=== PATIENT | male | born 1995 | race Caucasian/White ===

== ENCOUNTER 2017-02-28 13:50 | Inpatient (IN) | payer OTHER ==
[~2017-02-28] VITALS: Ht 175.3 cm; Wt 114.6 kg
[2017-02-28] MEDS: NICOTINE 21MG/24HR 1 EA TRANSDERMAL TD SCH (09:00)
[2017-02-28 15:09] LABS: MEAN CORPUSCULAR HEMOGLOBIN 29.7 pg (27.0-33.0); MEAN CORPUSCULAR HGB CONC 35.5 g/dl (32.0-36.5); MEAN CORPUSCULAR VOLUME 83.7 fl (80.0-96.0); RED CELL DISTRIBUTION WIDTH 13.3 % (11.5-14.5); WHITE BLOOD COUNT 8.9 K/mm3 (4.0-10.0)
[2017-02-28 15:42] LABS: METHADONE URINE NEGATIVE (NEGATIVE)
[2017-02-28 15:49] LABS: ALBUMIN 4.5 GM/DL (3.2-5.2); ALBUMIN/GLOBULIN RATIO 1.45 (1.00-1.93); ALKALINE PHOSPHATASE 99 U/L (45-117); ALT/SGPT 58 U/L (12-78); ANION GAP 8 MEQ/L (8-16); AST/SGOT 31 U/L (15-37); BILIRUBIN,DIRECT 0.2 MG/DL (0.0-0.2); BILIRUBIN,TOTAL 0.6 MG/DL (0.2-1.0); BLOOD UREA NITROGEN 14 MG/DL (7-18); CALCIUM LEVEL 9.1 MG/DL (8.5-10.1); CARBON DIOXIDE LEVEL 31 MEQ/L (21-32); CHLORIDE LEVEL 100 MEQ/L (98-107); CREATININE FOR GFR 0.87 MG/DL (0.70-1.30); GLUCOSE, FASTING 95 MG/DL (70-105); POTASSIUM SERUM 4.1 MEQ/L (3.5-5.1); SODIUM LEVEL 139 MEQ/L (136-145); TOTAL PROTEIN 7.6 GM/DL (6.4-8.2)
[2017-02-28] MEDS ORDERED: LORazepam 2 MG TAB PO STA (16:31)
[2017-02-28] MEDS ORDERED: NICOTINE 21MG/24HR 1 EA TRANSDERMAL TD ONE (18:15)
[2017-02-28] MEDS ORDERED: traZODone 50 MG TAB PO PRN (18:45)
[2017-02-28] MEDS ORDERED: MOM 30ML SUSPENSION UDC PO PRN (18:45)
[2017-02-28] MEDS ORDERED: ACETAMINOPHEN TAB 650MG DOSE (2X325MG) PO PRN (18:45)
[2017-02-28] MEDS ORDERED: MAALOX 30 ML SUSP *UDC PO PRN (18:45)
[2017-02-28 19:17] VITALS: BP 154/88
[2017-03-01 06:17] VITALS: BP 129/68
--- NOTE | 2017-03-01 08:44 | REP ---
CT HEAD WITHOUT CONTRAST: HISTORY: Visual hallucination. 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 The patient refused to complete the rest of the examination. Signed by Brnadon Domingo MD 03/01/2017 08:55 A
[2017-03-01] MEDS: NICOTINE 21MG/24HR 1 EA TRANSDERMAL TD SCH (09:00)
--- NOTE | 2017-03-01 09:49 | HPEPDOC ---
Medical History and Physical Date of Admission Feb 28, 2017 at 17:33 History and Physical PCP: [facility] ATTENDING: Dr. Otilio Ho HPI: 21[facility]M [facility] Brief Reactive Psych[facility], being medically examined today. Pt is refusing exam. Pt is unable to provide history at this time and it is taken from the chart. 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 PE: Pt declines to participate. EKG: pending. 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 The patient refused to complete the rest of the examination. A&P: 21yoM [facility] Brief Reactive Psychosis 1. Psych. Plan per Psychiatry. Obtain baseline EKG to assure the safety of psychiatric medications as they can prolong the QT interval. Pt refused to complete CT Brain. 2. Nicotine dependence. Patch available. 3. Follow up with PCP on discharge. 4. Substance use. Per psychiatry. 5. Staff member Talib mitchell present throughout exam. Vital Signs Vital Signs Date Time Temp Pulse Resp B/P Pulse Ox O2 Delivery O2 Flow Rate FiO2 03/01/17 06:17 97.9 84 18 129/68 02/28/17 19:17 98 Room Air Laboratory Data Labs 24H Laboratory Tests 2 02/28/17 14:48: Acetaminophen Level < 2.0L, Aspartate Amino Transf (AST/SGOT) 31, Alanine Aminotransferase (ALT/SGPT) 58, Alkaline Phosphatase 99, Total Bilirubin 0.6, Direct Bilirubin 0.2, Albumin 4.5, Albumin/Globulin Ratio 1.45, Anion Gap 8, Calcium Level 9.1, Ethyl Alcohol Level < 0.003, Salicylates Level < 1.7L, Thyroid Stimulating Hormone (TSH) 1.930, Total Protein 7.6, Urine Amphetamines Screen NEGATIVE, Urine Benzodiazepines Screen NEGATIVE, Urine Opiates Screen NEGATIVE, Urine Barbiturates Screen NEGATIVE, Urine Cannabinoids Screen POSITIVEH, Urine Cocaine Metabolite Screen NEGATIVE, Urine Methadone Screen NEGATIVE, Urine Phencyclidine Screen NEGATIVE CBC/BMP Laboratory Tests 02/28/17 14:48 Red Blood Count 5.32, Mean Corpuscular Volume 83.7, Mean Corpuscular Hemoglobin 29.7, Mean Corpuscular Hemoglobin Concent 35.5, Red Cell Distribution Width 13.3 Home Medications No Active Prescriptions or Reported Meds Allergies Coded Allergies: Apple (Verified Allergy, Unknown, 02/28/17) Cat Dander (Verified Allergy, Unknown, 02/28/17) Mary Dickinson Mar 01, 2017 09:49
--- NOTE | 2017-03-01 17:14 | HPEPDOC ---
[facility] History & Physical History and Physical DATE OF ADMISSION: Feb 28, 2017 at 17:33 LEGAL STATUS AT ADMISSION: 9.39 CHIEF COMPLAINT: "I know what I'm doing here" HISTORY OF THE PRESENT ILLNESS: The patient a 21-year-old man presented to [facility] at the behest of his command and on his own ambulation due to concerns of increasing insomnia as well as reported "auditory hallucinations". The patient 1 met with was fairly irritated that he been admitted and felt that his admission was unwarranted. After some empathic listening and controlling he did eventually relay the details of his symptomatology and history. When the patient was met with he describes for the last 2 years he been having hypnagogic hallucinations of various colorful figures including an "cat, color man and woman" that only occur when he is going to sleep or when he is abruptly awoken away from sleep. He describes that he is experienced increasing daytime fatigue, irritation and weight gain of 165 pounds. He described further that prior to the entering the he had no such symptoms but had always had difficulty sleeping. He described that his roommate's note that he thrashes in his sleep and yells out various subsidies. He has no memories of these when he awakens. He also described that after getting excited he will suddenly lapsed into an episode of sleep. He describes this as fairly disruptive and disturbing and had suffered only reactive anxiety and irritation related to it. Social work attended me with patient but he was fairly irritated with them and refused to give much of his psychosocial history. Information [place] reveals of the patient's currently facing Chapter proceedings due to his weight gain and behavioral issues. He had not been seen at the behavioral health clinic for any medication management and described that this was his first interaction with psychiatry. PSYCHIATRIC ROS: Affective: The patient denies any episodes of unprovoked depressed mood associated with neurovegetative symptoms lasting longer than 2 weeks with symptoms present nearly everyday. The patient denies any episodes of euphoria/ dysphoria associated with decreased need for sleep, hedonism, talkatively or impulsivity lasting longer than 5 days. Anxiety: The patient denies any excessive worry associated with physical symptoms. They deny any experience of discreet panic in the past. Trauma: The patient denies any traumatic events associated with nightmares or intrusive thoughts. Psychosis: See above, denies any other hallucinations, paranoia or delusions outside the setting of sleep Personality: Patient does have behavioral issues suggestive of underlying personality pathology PAST PSYCHIATRIC HISTORY: Prior Psychiatric Diagnosis: None Previous admissions: None Current Medications: None Suicide attempts: None Psychotropic Medication History: None ALLERGIES: Please see below. FAMILY PSYCHIATRIC HISTORY: The patient describes that his father was an alcoholic and that his aunt suffers from Alzheimer's dementia. He additionally describes his mother suffered from severe anxiety. 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 He described that it helped him with sleep. He stated that when he was off duty that he had done marijuana and tested positive in the . He made no other mention of any harder drugs MEDICAL HISTORY: None MENTAL STATUS EXAMINATION: General: Well dressed with good hygiene Speech: Spontaneous and fluid Thought processes: Linear and logical Thought content: Irritation with the treatment team Abstract reasoning, and computation: Intact Description of associations: Intact Description of abnormal or psychotic thoughts:Denies any suicidal or homicidal ideation. Denies any auditory or visual hallucinations. Does not appear to be responding to internal stimuli. Does not appear to be endorsing any bizarre or paranoid ideation. Judgment: Poor Insight: Poor Orientation: Alert and orientated 3 Recent and remote memory: Intact Attention span and concentration: Intact Fund of knowledge: Adequate Mood: "Just fine" Affect: Irritated PSYCHOMETRIC TESTING/RATING SCALES ON ADMISSION: HAM-A: 1- ANXIOUS MOOD Not present [0] 2- TENSION Not present [0] 3- FEARS Not present [0] 4- INSOMNIA Severe [3] 5- INTELLECTUAL Not present [0] 6- DEPRESSED MOOD Not present [0] 7- SOMATIC (muscular) Not present [0] 8- SOMATIC (sensory) Not present [0] 9- CARDIOVASCULAR SYMPTOMS Not present [0] 10- RESPIRATORY SYMPTOMS Not present [0] 11- GASTROINTESTINALS SYMPTOMS Not present [0] 12- GENITOURINARY SYMPTOMS Not present [0] 13- AUTONOMIC SYMPTOMS Not present [0] 14- BEHAVIOUR AT INTERVIEW Not present [0] ? 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 Score 3 ? Assessment NORMAL BRIEF PSYCHIATRIC RATING SCALE: 1- Somatic concern Not assessed 2- Anxiety Not assessed 3- Depression Not assessed 4- Suicidality Not assessed 5- Guilt Not assessed 6- Hostility Not present +1 7- Elated Mood Not assessed 8- Grandiosity Not assessed 9- Suspiciousness Not assessed 10- Hallucinations Very mild +2 11-Unusual thought content Not assessed 12- Bizarre behaviour Not assessed 13- Self-neglect Not assessed 14- Disorientation Not assessed 15- Conceptual disorganisation Not assessed 16- Blunted affect Not assessed 17- Emotional withdrawal Not assessed 18- Motor retardation Not assessed 19- Tension Not assessed 20- Uncooperativeness Mild +3 21- Excitement Not assessed 22- Distractibility Not assessed 23- Motor hyperactivity Not assessed 24- Mannerisms and posturing Not assessed ? BPRS Score (out of 168 possible points) 6 DIAGNOSES: 1. 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 Parasomnia, unspecified 3. Cannabis use disorder, severe, in controlled setting ASSESSMENT: 21-year-old man who symptoms primarily fit psychosis secondary to an parasomnia. He endorses symptoms consistent with narcolepsy with cataplexy as well as REM sleep disorder. However, in order to confirm these diagnoses he will need a sleep study to determine if he does suffer from his underlying disorders. These do account for some of his weight gain irritation and other symptoms. He did present on his own volition as he [place] and less than 5 weeks. He does not wish to participate in the treatment and due to our concern that his underlying condition is related to a medical condition he cannot be detained against as well. He does wish to leave at this time PROBLEM LIST: 1. Anxiety 2. Substance use 3. Poor impulse control INITIAL TREATMENT PLAN: 1. Patient was admitted on a 9.39 legal status. 2. Complete history was obtained. 3. With patients permission, family will be contacted and database will be expanded. 4. Patients medication regimen will be reviewed and changed accordingly. -None 5. Patient will be provided with protected environment. 6. Patient will be treated with individual, group, and milieu therapies. 7. Patient will receive supportive psych-education. 8. Discharge planning will commence immediately. 9. Outpatient follow-up treatment will be strongly recommended. 10. The initial treatment plan will focus initially on: Safety planning and discharge ESTIMATED LENGTH OF STAY: 1-1 DAYS. TIME SPENT COUNSELING AND COORDINATING INITIAL CARE: 50 minutes. Medications No Active Prescriptions or Reported Meds Allergies Coded Allergies: Apple (Verified Allergy, Unknown, 02/28/17) Cat Dander (Verified Allergy, Unknown, 02/28/17) GME ATTESTATION My preceptor for this patient encounter was physically present in the building during the encounter and was fully available. As needed, all aspects of the patient interview, examination, medical decision making process, and medical care plan development were reviewed and approved by the preceptor. Preceptor is aware and concurs with the plan as stated in the body of this note and will attest to such by his/her cosignature. BRANDON MATTHEWS DO Mar 01, 2017 17:14
--- NOTE | 2017-03-01 17:18 | DS.PDOC ---
[facility] Discharge Summary Discharge Summary DATE OF ADMISSION: Feb 28, 2017 at 17:33 DATE OF DISCHARGE: Mar 01, 2017 at 13:00 DISCHARGE DIAGNOSES: 1. Unspecified psychotic disorder due to a medical condition. 2. Parasomnia, unspecified. 3. Cannabis use disorder, severe, in controlled setting. REASON FOR ADMISSION: Due to concerns of psychosis and behavioral problems CONSULTANTS INVOLVED: None TREATMENT AND PROGRESS ON THE UNIT : Legal status on admission: 9.39 Medication Management: None Psychotherapy: Did not attend groups Behavior: Was generally irritated and hostile the treatment team refusing to comply due to his pleased that he did not need to be on the martinez Discharge planning: The patient after a violation and screening appear to be suffering from a parasomnia that would explain his hallucinations and his primary reason for being admitted. After discussion it was decided the patient would do better as an outpatient as there is no acute safety concerns and he had not made any threats against others, himself or her grossly disorganized. He was referred with a sleep study and recreation see sleep specialist due to concerns for parasomnia causing his various symptoms including weight gain and irritability. Outpatient recommendations: Sleep study referral to sleep specialist Pending studies on discharge: None DISCHARGE ASSESSMENT: 21-year-old man with no psychiatric history who presents for the last 2 years with hypnagogic and hypnopompic hallucinations that are highly suggestive of a REM sleep disorder and other symptoms consistent with narcotics or cataplexy. His underlying medical condition appears to form the need is for his psychiatric symptoms and thus is not able to be detained against his will. He will need further workup to determine the underlying etiology of the parasomnia and proper treatment. MENTAL STATUS EXAMINATION ON DISCHARGE: General: Well dressed with good hygiene Speech: Spontaneous and fluid Thought processes: Linear and logical Thought content: Future orientated Abstract reasoning, and computation: Intact Description of associations: Intact Description of abnormal or psychotic thoughts:Denies any suicidal or homicidal ideation. Denies any auditory or visual hallucinations. Does not appear to be responding to internal stimuli. Does not appear to be endorsing any bizarre or paranoid ideation. Judgment: Improved Insight: Improved Orientation: Alert and orientated 3 Recent and remote memory: Intact Attention span and concentration: Intact Fund of knowledge: Adequate Mood: "Better now that he explained it" Affect: Euthymic with a full range PLAN/FOLLOWUP ARRANGEMENTS: Recommend that the patient be followed by a sleep specialist and further diagnostic workup be pursued down the neurological/sleep pathway rather than necessarily a psychiatric pathway. The social work team worked during the predischarge meeting in order to evaluate for further issues of lethality address them fully before discharge. They worked on safety planning with the patient's family members in order to ensure that the patient will have a safe and effective discharge. The amount of time spent in the coordination of care for this patient was approximately 50 minutes. Vital Signs/I&Os Vital Signs Date Time Temp Pulse Resp B/P Pulse Ox O2 Delivery O2 Flow Rate FiO2 03/01/17 06:17 97.9 84 18 129/68 02/28/17 19:17 98 Room Air Medications No Active Prescriptions or Reported Meds Allergies Coded Allergies: Apple (Verified Allergy, Unknown, 02/28/17) Cat Dander (Verified Allergy, Unknown, 02/28/17) GME ATTESTATION My preceptor for this patient encounter was physically present in the building during the encounter and was fully available. As needed, all aspects of the patient interview, examination, medical decision making process, and medical care plan development were reviewed and approved by the preceptor. Preceptor is aware and concurs with the plan as stated in the body of this note and will attest to such by his/her cosignature. BRANDON MATTHEWS DO Mar 01, 2017 17:18
== END 2017-03-01 13:00 | disposition home or self-care (01) | DRG 885 ==
LOC: EDBD 13:50 → M ED 14:29 → M ED INP 17:33 → M PSY 19:00
PROVIDERS: ADMIT Psychiatry & Neurology Child & Adolescent Psychiatry; ATTEND Psychiatry & Neurology Psychiatry
DX: F29 Unspecified psychosis not due to a substance or known physiological condition (principal); F12.20 Cannabis dependence, uncomplicated; G47.00 Insomnia, unspecified; F17.210 Nicotine dependence, cigarettes, uncomplicated; Z91.018 Allergy to other foods; Z91.048 Other nonmedicinal substance allergy status; R63.5 Abnormal weight gain

== ENCOUNTER 2017-03-12 00:19 | Emergency (ER) | payer OTHER ==
[~2017-03-12] VITALS: Ht 175.3 cm; Wt 72.6 kg
[2017-03-12 00:37] VITALS: BP 127/74
[2017-03-12] MEDS ORDERED: ZYPR15TA (00:40)
[2017-03-12] MEDS ORDERED: PRAZ1CAP (00:40)
[2017-03-12] MEDS ORDERED: NS 500 ML IV ONE (01:15)
[2017-03-12] MEDS ORDERED: ASPIRIN 81 MG CHEW TABLET PO ONE (01:15)
--- NOTE | 2017-03-12 06:29 | ECGEPIP ---
Stationary ECG Study [facility] - ED Test Date: 2017-03-12 Pat Name: LEO LYONS Department: Room: - Gender: M Manager Ems: ROWDY : 1995 Requested By: MICHELL Montero Order Number: [id number] Reading MD: Blair Copeland Measurements Intervals [place] Rate: 79 P: 57 VA: 159 QRS: 1 QRSD: 98 T: 0 QT: 388 QTc: 447 Interpretive Statements SINUS RHYTHM INC. RBBB BENIGN EARLY REPOLARIZATION NSTTW ABNORMALITY MODERATE VOLTAGE CRITERIA FOR LVH, CONSIDER NORMAL VARIANT NO PRIORS Electronically Signed On 03-12-2017 6:29:24 EDT by Blair Copeland
== END 2017-03-12 01:30 | disposition left against medical advice (07) ==
LOC: M ED 00:19
DX: R07.9 Chest pain, unspecified (principal)

== ENCOUNTER → 2017-08-14 | Outpatient (CLI) | payer OTHER ==
[~2017-08-14] MED LIST: PRAZ1CAP; ZYPR15TA
--- NOTE | 2017-08-24 07:47 | SLEEP ---
DATE OF PROCEDURE: 08/14/2017 REFERRING PHYSICIAN: Dr. Gracie Trujillo INTERPRETATION: An overnight polysomnography was performed for evaluation of excessive daytime sleepiness. The patient did not report to his physician that he was only using C-PAP for a couple of hours per night. The patient was originally scheduled for multiple sleep latency test which was cancelled and a positive airway titration was performed. A total 7 hours and 19 minutes of data was reviewed with total sleep time of 392.5 minutes with mildly reduced sleep efficiency, but normal sleep onset latency. The oxygen saturation remained 90% or above throughout the study. No respiratory effort related arousals were noted. Periodic limb movement index was 26.3 per hour. Before the study, the patient was fit with a [employer] [place] Simplus medium-sized full face mask and C-PAP trial was initiated at 6 cm of water pressure and increased to 8 cm of water pressure, which was successful in treating the patient's sleep apnea. No significant sleep disordered breathing was noted. No snoring was noted. CONCLUSION: Successful trial of C-PAP at 8 cm of water pressure with recommended mask. RECOMMENDATIONS: Nightly use of C-PAP at 8 cm of water pressure with recommended mask. If the patient continues to be sleepy despite adequately using his C-PAP device, he can be referred back for multiple sleep latency test. Clinical correlation is recommended.
== END ==
LOC: M SLEEP 21:09
PROVIDERS: ATTEND Psychiatry & Neurology Neurology
DX: G47.33 Obstructive sleep apnea (adult) (pediatric) (principal)

== ENCOUNTER 2017-09-27 21:34 | Emergency (ER) | payer OTHER ==
[~2017-09-27] VITALS: Ht 175.3 cm; Wt 131.8 kg
[2017-09-27] MEDS ORDERED: SERO1TAB PO (21:43)
[2017-09-27] MEDS ORDERED: [UNRECOGNIZED DRUG - OTHER] PO (21:43)
[2017-09-27] MEDS ORDERED: METHOCARBAMOL 1,000 MG/10 ML VIAL (J2800) IM ONE (23:15)
[2017-09-27] MEDS ORDERED: KETOROLAC 60 MG/2 ML VIAL (J1885) IM ONE (23:15)
[2017-09-27] MEDS ORDERED: NAPR500T3 PO (23:28)
[2017-09-27] MEDS ORDERED: ROBA500T PO (23:28)
[2017-09-27 23:33] VITALS: BP 166/88
--- NOTE | 2017-09-27 23:57 | REP ---
Clinical: Pain. Technique: AP, lateral, bilateral oblique, flexion/extension and open-mouth views of the cervical spine. Findings: AP view demonstrates deviation of the cervical spine towards the right side which may reflect pain/spasm and should be correlated clinically. The vertebral bodies are normal in appearance and there is no evidence for acute fracture / compression injury or subluxation. No significant degenerative disc disease noted. Spinous processes are intact. Oblique views demonstrate patent neural foramen. Open mouth view demonstrates normal C1-C2 articulation and odontoid process. Impression: Cervical deviation to the right may be related to pain/spasm and should be correlated clinically. Otherwise normal age-appropriate cervical spine radiograph series. Signed by Ricardo Jacobo MD 09/27/2017 11:48 P
--- NOTE | 2017-09-28 00:03 | REP ---
Clinical: thoracic pain. Technique: AP, lateral, and swimmers views. Findings: Alignment and kyphosis is maintained. Vertebral bodies intact. No acute fracture / compression injury or subluxation. No degenerative changes. Paravertebral soft tissues are normal. Impression: Normal thoracic spine series. Signed by Ricardo Jacobo MD 09/27/2017 11:55 P
== END 2017-09-27 23:41 | disposition home or self-care (01) ==
LOC: M ED 21:34
DX: M62.830 Muscle spasm of back (principal); G47.419 Narcolepsy without cataplexy; F41.9 Anxiety disorder, unspecified; F33.9 Major depressive disorder, recurrent, unspecified; F17.210 Nicotine dependence, cigarettes, uncomplicated; R44.3 Hallucinations, unspecified; Z79.899 Other long term (current) drug therapy; J30.81 Allergic rhinitis due to animal (cat) (dog) hair and dander; Z91.018 Allergy to other foods
CPT/HCPCS: 72052; 72072; 96372; 99283; J1885; J2800